=== PATIENT | female | born 1935 | race Caucasian/White ===

== ENCOUNTER 2016-10-11 10:08 | Inpatient (IN) | payer MEDICARE, BC ==
[~2016-10-11 10:08] MED LIST: ASCORBIC ACID500 M2 PO; CALCIUM MAGNES1 EAC2 PO; COQ-1030 M1 PO; LUTEIN6 M3 PO; MACROBID 100 M100 M1 PO; MELOXICAM15 M1 PO; MULTIPLE VITAM1 EAC4 PO; OMEGA-31000 M2 PO; REFRESH OPTIVE10 M1 EACH EYE; SELENIUM PO; VITAMIN E100 UNI6 PO; [UNRECOGNIZED DRUG - CODE] PO
[2016-10-11 11:09] LABS: PROTHROMBIN TIME 11.1 SECONDS (9.0-13.6)
[2016-10-12 05:14] LABS: BASO % 0.1 % (0-2); HCT-HEMATOCRIT 36.7 % (34.0-49.0); HGB-HEMOGLOBIN 12.1 gm/dl (12.0-15.5); IMMATURE GRANULOCYTES ABSOLUTE 0.02 tho/cmm (0-0.03); IMMATURE GRANULOCYTES PERCENT 0.2 % (0-0.3); LYMPH % 7.7 % (20-45); LYMPH ABSOLUTE COUNT 0.9 tho/cmm (0.8-4.5); MCH (MEAN CORPUSCULAR HGB) 30.3 pg (28.0-32.0); MEAN PLATELET VOLUME 9.5 cmc (9.4-12.4); NEUTROPHIL ABSOLUTE COUNT 9.2 tho/cmm (1.6-8.0); NEUTROPHIL-AUTOMATED 9.2 tho/cmm (1.6-8.0); PLATELET COUNT 174 tho/cmm (150-450); RED BLOOD COUNT 3.99 mil/cmm (4.00-5.20); RED CELL DISTRIBUTION WIDTH 15.1 % (12.4-16.4)
[2016-10-12 05:34] LABS: ANION GAP 10 mmol/L (0-20); BLOOD UREA NITROGEN 18 mg/dl (6-24); CALCIUM 8.6 mg/dl (8.5-10.5); CARBON DIOXIDE-VENOUS 26 mmol/L (22-32); CHLORIDE 110 mmol/l (96-110); CREATININE 0.72 mg/dl (0.50-1.10); GLUCOSE 122 mg/dL (70-110); POTASSIUM 4.4 mmol/L (3.7-5.1); SODIUM 142 mmol/L (135-145); eGFR VALUE FOR BLACK 90 mL/Min
[2016-10-15] MEDS ORDERED: ASPIRIN81 M1 PO (11:22)
[2016-10-15] MEDS ORDERED: MOBIC7.5 M2 PO (11:25)
[2016-10-15] MEDS ORDERED: ROXICODONE5 M2 PO (11:26)
[2016-10-15] MEDS ORDERED: ULTRAM50 M1 PO (11:28)
[2016-10-15] MEDS ORDERED: TYLENOL325 M2 PO (11:29)
[2016-10-15] MEDS ORDERED: SENOKOT-S TABL1 EACH PO (11:31)
== END 2016-10-15 13:00 | disposition home health service (06) | DRG 470 ==
LOC: SHSC 10:08 → ORE 13:29 → PACU 14:49 → 5EA 16:05
PROVIDERS: Family Medicine; ADMIT Orthopaedic Surgery Foot and Ankle Surgery
PROC: 0SR9029 Replacement of Right Hip Joint with Metal on Polyethylene Synthetic Substitute, Cemented, Open Approach (ICD-10-PCS; principal; 2016-10-11)
DX: M16.11 Unilateral primary osteoarthritis, right hip (principal); I10 Essential (primary) hypertension; E78.5 Hyperlipidemia, unspecified; Z79.82 Long term (current) use of aspirin; Z79.899 Other long term (current) drug therapy
CPT/HCPCS: C1776; J0171; J0690; J1885; J2270; J2795